=== PATIENT | female | born 1960 | race African-American/Black ===

== ENCOUNTER 2017-06-10 15:36 | Emergency (ER) | payer MEDICAID ==
[~2017-06-10] VITALS: Ht 160 cm; Wt 73.0 kg
[2017-06-10] MEDS ORDERED: KETOROLAC 30MG/ML VIAL IV ONE (18:15)
[2017-06-10 21:30] VITALS: BP 110/85
== END 2017-06-10 21:30 | disposition home or self-care (01) ==
LOC: ER 15:55
DX: T40.601A Poisoning by unspecified narcotics, accidental (unintentional), initial encounter (principal); K08.89 Other specified disorders of teeth and supporting structures; J44.9 Chronic obstructive pulmonary disease, unspecified; E11.9 Type 2 diabetes mellitus without complications; I10 Essential (primary) hypertension; M32.9 Systemic lupus erythematosus, unspecified; Z88.0 Allergy status to penicillin; Y92.89 Other specified places as the place of occurrence of the external cause
CPT/HCPCS: 96374; 99284; J1885; Z7610